=== PATIENT | male | born 1935 | race Caucasian/White ===

== ENCOUNTER 2016-07-16 16:23 | Emergency (ER) | payer MEDICARE, OTHER ==
[2016-07-16 16:50] LABS: BASOPHIL 0.6 % (0-2); EOSINOPHIL 1.1 % (0-7); HCT 49.4 % (42.0-52.0); HGB 17.3 g/dl (13.2-18.0); LYMPHOCYTE 43.2 % (15-48); MCH 31.5 pg (25.0-31.0); MONOCYTE 4.2 % (0-12); MPV 9.7 fL (6.0-9.5); NEUTROPHIL 50.9 % (41-80); PLT 192 K/uL (150-400); RBC 5.49 M/uL (4.70-6.00)
[2016-07-16 16:51] LABS: WBC 22.5 K/uL (4.0-10.5)
[2016-07-16 17:00] LABS: INR 1.03 (0.9-1.2); PROTHROMBIN TIME 13.1 SECONDS (11.7-14.0); PTT 24.9 SECONDS (23.2-31.4)
[2016-07-16 17:09] LABS: CKMB 4.4 ng/mL (0.97-4.94); TROPONIN T 0.029 ng/mL
[2016-07-16 17:10] LABS: CREATININE 2.2 mg/dL (0.7-1.2); GLOBULIN (CALCULATION) 2.8 g/dL (2.2-4.2); POTASSIUM 5.7 mmol/L (3.5-5.1); TOTAL PROTEIN 7.8 g/dL (6.4-8.3)
== END 2016-07-16 18:20 | disposition other institution (70) ==
LOC: FER 16:23
PROVIDERS: Emergency Medicine
DX: I62.9 Nontraumatic intracranial hemorrhage, unspecified (principal); R29.810 Facial weakness; R47.81 Slurred speech; E11.22 Type 2 diabetes mellitus with diabetic chronic kidney disease; I12.9 Hypertensive chronic kidney disease with stage 1 through stage 4 chronic kidney disease, or unspecified chronic kidney disease; N18.3 Chronic kidney disease, stage 3 (moderate); E78.5 Hyperlipidemia, unspecified; Z79.82 Long term (current) use of aspirin; Z79.84 Long term (current) use of oral hypoglycemic drugs; Z79.899 Other long term (current) drug therapy
CPT/HCPCS: 36415; 70450; 71010; 80053; 80061; 82550; 82553; 83874; 84484; 85025; 85610; 85730; 93005